=== PATIENT | female | born 1975 | race African-American/Black ===

== ENCOUNTER 2019-01-03 14:32 | Emergency (ER) | payer SELFPAY ==
--- NOTE | 2019-01-03 15:08 | RAD ---
EXAM: Chest PA and lateral: HISTORY: Headache. Visual disturbance COMPARISON: none FINDINGS: Lung sellers are clear. Vascular markings are normal. Heart and mediastinum appear unremarkable. Vascularity is normal. Osseous structures are unremarkable. IMPRESSION: Unremarkable chest
[2019-01-03 15:09] LABS: Bacteria/HPF None Seen HPF (None Seen); Bilirubin Negative (Negative); Blood, Urine Negative (Negative); Clarity Clear (Clear); Glucose, Urine (Dipstick) Normal (Negative); Leukocyte 250 Leu/uL (Negative); Nitrite Negative (Negative); Protein, Urine (Dipstick) Negative (Neg-Trace); RBC/HPF 0-3 HPF (0-3); Urobilinogen Normal mg/dL (Less than 2)
[2019-01-03 15:23] LABS: Hemoglobin 11.3 g/dL (12.0-16.0); Mean Corpuscular HGB CONC 31.5 g/dL (32.0-36.0); Mean Corpuscular Hemoglobin 24.1 pg (27.0-31.0); Mean Corpuscular Volume 76.6 fL (78.0-98.0); Mean Platelet Volume 10.6 fL (7.4-10.4); Platelet Count 251 thou/uL (130-400); Red Blood Cell (RBC) Count 4.67 mill/uL (4.20-5.40); White Blood Cell (WBC) Count 6.4 thou/uL (4.8-10.8)
[2019-01-03 15:33] LABS: Anisocytosis SLIGHT = 6-15 cells (100X) (0-5/hpf); Band 1 % (5-11); Eosinophils 1 % (0-10); Hypochromia SLIGHT = 6-15 cells (100X) (0-5/hpf); Lymphocytes 15 % (21-51); MDiff Complete? YES; Monocytes 2 % (0-10); Neutrophil 81 % (42-75); Platelet Morphology Comment Appears Adequate
[2019-01-03 15:38] LABS: ALT (SGPT) 9 U/L (8-55); AST (SGOT) 14 U/L (5-34); Albumin 3.9 g/dL (3.5-5.0); Alkaline Phosphatase 51 U/L (40-150); Anion Gap 15 mmol/L (10-20); BUN (Urea Nitrogen) 9 mg/dL (7.0-18.7); Bilirubin, Total 0.2 mg/dL (0.2-1.2); Calc. Creatinine Clearance 0 mL/min (70-130); Calcium 9.6 mg/dL (7.8-10.44); Carbon Dioxide 23 mmol/L (22-29); Chloride 103 mmol/L (98-107); Estimated GFR-MDRD 71; Globulin 3.1 g/dL (2.4-3.5); Glucose 112 mg/dL (70-105); Potassium 3.8 mmol/L (3.5-5.1); Sodium 137 mmol/L (136-145)
[2019-01-03] MEDS ORDERED: Amlodipine 5 MG TAB ONE (16:39)
[2019-01-03] MEDS ORDERED: Hydrochlorothiazide 25 MG TAB PO SCH (17:00)
== END 2019-01-03 17:22 | disposition home or self-care (01) ==
LOC: ERS 14:32
DX: I10 Essential (primary) hypertension (principal); Z76.0 Encounter for issue of repeat prescription; D64.9 Anemia, unspecified; Z87.891 Personal history of nicotine dependence; Z79.899 Other long term (current) drug therapy
CPT/HCPCS: 36415; 71046; 80053; 81003; 81015; 84484; 85025; 93005

== ENCOUNTER 2019-02-14 00:47 | Emergency (ER) | payer SELFPAY ==
[2019-02-14 01:35] LABS: #Basophils 0.1 thou/uL (0.0-0.2); #Eosinphils 0.1 thou/uL (0.0-0.7); #Lymphocytes 2.4 thou/uL (1.20-3.40); #Monocytes 0.3 thou/uL (0.11-0.59); #Neutrophils 4.2 thou/uL (1.40-6.50); %Basophils 0.9 % (0.0-1.0); %Eosinophils 1.2 % (0.0-10.0); %Lymphocytes 33.7 % (21.0-51.0); %Monocytes 4.4 % (0.0-10.0); %Neutrophils 59.8 % (42.0-75.0); Hemoglobin 10.9 g/dL (12.0-16.0); Mean Corpuscular HGB CONC 31.7 g/dL (32.0-36.0); Mean Corpuscular Hemoglobin 23.9 pg (27.0-31.0); Mean Corpuscular Volume 75.5 fL (78.0-98.0); Mean Platelet Volume 9.4 fL (7.4-10.4); Platelet Count 308 thou/uL (130-400); RBC Distribution Width 16.3 % (11.5-14.5); Red Blood Cell (RBC) Count 4.54 mill/uL (4.20-5.40); White Blood Cell (WBC) Count 7.1 thou/uL (4.8-10.8)
[2019-02-14] MEDS ORDERED: Amlodipine 5 MG TAB PO SCH (01:45)
[2019-02-14] MEDS ORDERED: Hydrochlorothiazide 25 MG TAB PO SCH (01:45)
[2019-02-14 01:59] LABS: ALT (SGPT) 17 U/L (8-55); AST (SGOT) 13 U/L (5-34); Albumin 4.2 g/dL (3.5-5.0); Alkaline Phosphatase 56 U/L (40-150); Anion Gap 13 mmol/L (10-20); BUN (Urea Nitrogen) 10 mg/dL (7.0-18.7); Bilirubin, Total 0.2 mg/dL (0.2-1.2); Calc. Creatinine Clearance 0 mL/min (70-130); Calcium 9.4 mg/dL (7.8-10.44); Carbon Dioxide 23 mmol/L (22-29); Chloride 106 mmol/L (98-107); Estimated GFR-MDRD 90; Globulin 3.1 g/dL (2.4-3.5); Glucose 118 mg/dL (70-105); Potassium 3.8 mmol/L (3.5-5.1); Protein, Total 7.3 g/dL (6.0-8.3); Sodium 138 mmol/L (136-145)
[2019-02-14] MEDS ORDERED: Metoclopramide HCl 10 MG TAB ONE (02:28)
[2019-02-14] MEDS ORDERED: Ketorolac Tromethamine 30 MG/ML VIAL ONE (02:28)
== END 2019-02-14 02:52 | disposition home or self-care (01) ==
LOC: ERS 00:47
DX: I10 Essential (primary) hypertension (principal); Z87.891 Personal history of nicotine dependence
CPT/HCPCS: 80053; 85025; 93005; 96374; J1885; J8597

== ENCOUNTER 2019-03-16 17:08 | Emergency (ER) | payer SELFPAY ==
[2019-03-16] MEDS ORDERED: traMADol HCl 50 MG TAB ONE (18:04)
--- NOTE | 2019-03-16 18:45 | ULT ---
EXAM: Left lower extremity venous duplex: Deep veins evaluated with color Doppler, spectral analysis, and compression. INDICATIONS: Left lower extremity pain and edema. FINDINGS: Deep veins interrogated include common femoral vein, femoral vein, popliteal vein, and post erior tibial vein. These veins show normal compression and blood flow. No evidence of DVT. IMPRESSION: Negative Left venous duplex exam.
== END 2019-03-16 19:05 | disposition home or self-care (01) ==
LOC: ERS 17:08
DX: M25.462 Effusion, left knee (principal); I10 Essential (primary) hypertension; M19.90 Unspecified osteoarthritis, unspecified site; D64.9 Anemia, unspecified; E55.9 Vitamin D deficiency, unspecified; Z87.891 Personal history of nicotine dependence

== ENCOUNTER 2019-07-27 23:04 | Emergency (ER) | payer OTHER ==
[2019-07-27] MEDS ORDERED: Lidocaine 1% (PF) 30 ML VIAL ONE (23:50)
[2019-07-27] MEDS ORDERED: Morphine 4 MG/ML VIAL ONE (23:50)
[2019-07-27] MEDS ORDERED: Ondansetron ODT 4 MG TAB ONE (23:50)
[2019-07-28] MEDS ORDERED: HYDROcodone/Acetaminophen 10/325 mg Tablet ONE (00:41)
== END 2019-07-28 00:51 | disposition home or self-care (01) ==
LOC: ERS 23:04
DX: L02.412 Cutaneous abscess of left axilla (principal); I10 Essential (primary) hypertension; M19.90 Unspecified osteoarthritis, unspecified site; D64.9 Anemia, unspecified; F17.200 Nicotine dependence, unspecified, uncomplicated; Z79.899 Other long term (current) drug therapy
CPT/HCPCS: 10060; 96372; J2001; J2270; Q0162